=== PATIENT | male | born 1945 | race Caucasian/White ===

== ENCOUNTER 2017-07-03 09:55 | Day surgery (SDC) | payer OTHER ==
--- NOTE | 2017-06-21 14:55 | PAT Medication Instructions ---
Service Date Jun 21, 2017. Current Home Medication List Brimonidine Tartrate-Timolol M (Combigan), 1 DROP OP BD Carvedilol (Coreg), 6.25 MG PO BID Medication Instructions For Your Scheduled Surgery - Take the following medications the morning of surgery with a sip of water OTHERWISE NOTHING TO EAT OR DRINK AFTER MIDNIGHT: Carvedilol (Coreg), 6.25 MG PO BID Brimonidine Tartrate-Timolol M (Combigan), 1 DROP OP BD - Take the following medications as scheduled the night before surgery: Carvedilol (Coreg), 6.25 MG PO BID Brimonidine Tartrate-Timolol M (Combigan), 1 DROP OP BD If you have any questions please call us at [phone] or [phone] or [phone]
--- NOTE | 2017-06-21 15:29 | DIAGNOSTIC IMAGING REPORT ---
CHEST 2 VIEWS ROUTINE CLINICAL HISTORY: PAT preoperative evaluation COMPARISON STUDY: No previous studies for comparison. FINDINGS: The bones soft tissues and hemidiaphragms are normal. The cardiomediastinal silhouette is normal. The lungs are clear. The pulmonary vasculature is normal. IMPRESSION: Negative chest. The above report was generated using voice recognition software. It may contain grammatical, syntax or spelling errors. Electronically signed by: Gurpreet Rock M.D. 06/21/2017 3:28 PM Dictated Date/Time: 06/21/2017 3:28 PM
[2017-06-21 16:19] LABS: COMPLETE YES; HEMATOCRIT 38.8 % (42-52); IG% 0.4 %; LYMPH % 24.2 %; LYMPH ABS # 1.22 K/uL (1.2-3.4); MEAN CELL VOLUME 95.8 fL (80-100); MEAN CORPUSCULAR HEMOGLOBIN 31.6 pg (25-34); MEAN PLATELET VOLUME 11.8 fL (7.4-10.4); MONO % 6.3 %; NEUT % 68.1 %; PLATELET COUNT 147 K/uL (130-400); RED BLOOD COUNT 4.05 M/uL (4.7-6.1); WHITE BLOOD COUNT 5.04 K/uL (4.8-10.8)
[2017-06-21 16:20] LABS: URINE APPEARANCE CLEAR (CLEAR); URINE BILIRUBIN NEG (NEG); URINE COLOR DK YELLOW; URINE NITRITE NEG (NEG); URINE SPECIFIC GRAVITY 1.025 (1.000-1.030); UROBILINOGEN NEG (NEG)
[2017-06-21 16:26] LABS: MANUAL MICROSCOPIC REQUIRED? NO; REVIEW REQ? NO
[2017-06-21 16:27] LABS: BUN/CREATININE RATIO 15.4 (10-20); CALCIUM 8.6 mg/dl (8.5-10.1); CREATININE 1.2 mg/dl (0.60-1.40); POTASSIUM 4.6 mmol/L (3.5-5.1)
[~2017-07-03] VITALS: Ht 180.3 cm; Wt 98.6 kg
[~2017-07-03 09:55] MED LIST: ATROPINE SULFATE 0.1 MG/ML 5ML SYR IV PRN; BRIM0.2S OP; CARV6.25 PO; CEFAZOLIN 2000 MG/60 ML D5W IV SCH; EpHEDrine SULFATE INJ 50 MG/ML AMP IV PRN; FENTANYL CITRATE INJ 50 MCG/1 ML 2 ML VIAL IV PRN; HYDROmorphone INJ 1 MG/ML SYR IV PRN; LACTATED RINGER'S 1000ML 1,000 ML IV SCH; ONDANSETRON INJ 2 MG/ML 2 ML VIAL IV PRN
[2017-07-03 10:30] VITALS: BP 152/91; PULSE 78; TEMP 36.5; Ht 180.3 cm; Wt 98.6 kg
--- NOTE | 2017-07-03 11:07 | History & Physical Bridge Note ---
H&P Re-Evaluation Bridge Note: I have examined the patient, reviewed the History & Physical and in the interval since the performance of the History & Physical I have noted the following changes of clinical significance: No changes noted
[2017-07-03] MEDS ORDERED: FENTANYL CITRATE INJ 50 MCG/1 ML 2 ML VIAL ONE (11:17)
[2017-07-03] MEDS ORDERED: MIDAZOLAM HCL 1 MG/ML 2ML VIAL ONE (11:17)
[2017-07-03] MEDS ORDERED: LIDOCAINE HCL 1% 20 ML VIAL ONE (11:24)
[2017-07-03] MEDS ORDERED: CEFAZOLIN SOD 1 GM VIAL ONE (11:24)
--- NOTE | 2017-07-03 11:32 | Discharge Instructions ---
Discharge Instructions Date of Service Jul 03, 2017. Admission Reason for Admission: Prostate Cancer Discharge Discharge Diagnosis / Problem: Prostate cancer for indefinite androgen deprivation with bilateral orchiect Discharge Goals Goal(s): Improve disease control, Therapeutic intervention Activity Recommendations Activity Limitations: as noted below Lifting Limitations: no more than 25 pounds, gradually increase as tolerated ( over 5-7 days) Exercise/Sports Limitations: rest today, gradually increase as tolerated (over 5-7 days) May Resume Sexual Activity: when tolerated Shower/Bathe: tomorrow (no tub bath x 2 weeks) Driving or Machine Use: resume 1 day after discharge . Instructions / Follow-Up Instructions / Follow-Up Scrotal support and fluffs x 24 hours. Bacitracin ointment to incision x 1-2 weeks. Discharge Diet Recommended Diet: Regular Diet (good fluid intake) Procedures Procedures Performed: Bilateral simple orchiectomy Pending Studies Studies pending at discharge: yes List of pending studies: Pathology report Medical Emergencies . Who to Call and When: Medical Emergencies: If at any time you feel your situation is an emergency, please call 911 immediately. . Non-Emergent Contact Non-Emergency issues call your: Urologist Call Non-Emergent contact if: you have a fever, temperature is above 101, your pain is not controlled, your pain is worsening, your pain is unusual for you, your pain is concerning you, you have any medication questions . . "Provider Documentation" section prepared by Dangelo Pollard. . VTE Core Measure Inpt VTE Proph given/why not?: SCD's [place] Drug Monitoring Program Search Results: patient reviewed within database, no issues identified
[2017-07-03] MEDS ORDERED: CEPH500C2 PO (11:40)
[2017-07-03] MEDS ORDERED: OXYC7.5T65 PO (11:40)
[2017-07-03] MEDS ORDERED: PROPOFOL IV EMULSION 10 MG/ML 20 ML VIAL IV ONE (12:00)
[2017-07-03] MEDS ORDERED: ONDANSETRON INJ 2 MG/ML 2 ML VIAL ONE (12:00)
[2017-07-03] MEDS ORDERED: LIDOCAINE HCL 2% 2 ML VIAL (20MG/ML) ONE (12:00)
[2017-07-03] MEDS ORDERED: DEXAMETHASONE SOD INJ 4 MG/ML VIAL ONE (12:00)
[2017-07-03] MEDS ORDERED: BACITRACIN OINT 15 GM TUBE ONE (12:23)
[2017-07-03] MEDS ORDERED: BACI500O11 TOP (12:45)
--- NOTE | 2017-07-03 12:49 | [facility] Operative Report ---
Operative Report Operative Date Jul 03, 2017. Pre-Operative Diagnosis Metastatic Prostate Cancer on androgen deprivation therapy Post-Operative Diagnosis Same Procedure(s) Performed Bilateral simple orchiectomy Surgeon Dr. Keily Pollard [employer] Consultant Surgeon(s) none Estimated Blood Loss 20 ml Findings Bilateral atrophic and inflamed testes, excellent hemostasis after completion. Specimens A) Right testicle (07/03/17 @ 1202) B) Left testicle (07/03/17 @ 1212) Drains NA Anesthesia GALMA + local Complication(s) None Disposition Recovery Room / PACU Indications 72 yo male with metastatic CAP, history of rising PSA on intermittent ADT. He has chosen to have an orchiectomy due to intolerance of Lupron over time for his androgen deprivation. See H&P for further details. Description of Procedure Patient was properly identified and brought to the operative suite after identification of appropriate consent of the chart. General anesthesia with laryngeal mask was initiated and patient was prepped and draped in the standard fashion for this procedure. Full timeout procedure was followed. After instilling local anesthesia at the median raphae at the inferior most aspect of the scrotum incision was made with a 15 blade and brought down first to the right testis. Small amount of inflammatory fluid around the testis was appreciated this was delivered from the scrotum. Atrophy and inflammation consistent with long-term GnRH agonist therapy was noted. Cord was skeletonized and then clamped with a large Destinee. This was divided in testis was handed for pathologic analysis. Cord was controlled with a 0 silk stick tie 2 and 0 silk free tie 1 with flashing of the cord and excellent hemostasis. After this was complete the cord stump was returned to the right side of the scrotum. Left testis was delivered in a similar fashion, cord was divided in two, controlled with large Destinee clamps and divided. Again, 0 silk stick tie 2 and a free tie 1 was used and excellent hemostasis was appreciated. Both cords were blocked with plain Marcaine prior to clamping and incision to minimize negative stimulus. After this was complete both cord stumps return to the testis in excellent hemostasis was appreciated. Incision was closed in 2 layers with a 3-0 Vicryl running suture in the dartos fascia and 3-0 chromic at the level of the skin. Bacitracin ointment was placed followed by scrotal support with fluffs. Anesthesia was reversed and patient was transferred the recovery room in stable condition. Ice packs were provided prescriptions for Percocet and Keflex were placed within the chart. Postoperative appointments are confirmed and discharge limitations were noted. Care was discussed with patient's postoperatively. Patient was instructed to contact our service should he note any fevers, chills, nausea, vomiting or other difficulties in the postoperative period. I attest to the content of the Intraoperative Record and any orders documented therein. Any exceptions are noted below.
[2017-07-03] MEDS ORDERED: OXYCODONE/ACETAMINOPHEN 5-325 TAB PO PRN (13:00)
--- NOTE | 2017-07-03 13:15 | Anesthesiology Progress Note ---
Anesthesia Post Op Note Date & Time Jul 03, 2017 at 13:15 Vital Signs Pain Intensity: 0 Vital Signs Past 12 Hours Date Time Temp Pulse Resp B/P (MAP) Pulse Ox O2 Delivery O2 Flow Rate FiO2 07/03/17 13:05 75 17 151/64 94 Room Air 07/03/17 12:55 71 16 142/84 99 Oxymask 10 07/03/17 12:45 70 18 113/65 99 Oxymask 10 07/03/17 12:35 36.3 74 14 125/86 96 Oxymask 10 07/03/17 10:30 36.5 78 20 152/91 Notes Mental Status: alert / awake / arousable, participated in evaluation Pt Amnestic to Procedure: Yes Nausea / Vomiting: adequately controlled Pain: adequately controlled Airway Patency, RR, SpO2: stable & adequate BP & HR: stable & adequate Hydration State: stable & adequate Anesthetic Complications: no major complications apparent
[2017-07-03 13:25] VITALS: BP 167/90; PULSE 76; TEMP 36.4; O2SAT 93
[2017-07-03 14:00] VITALS: BP 154/87; PULSE 76; O2SAT 95
[2017-07-03 14:25] VITALS: BP 162/82; PULSE 76; TEMP 36.4; O2SAT 96
== END 2017-07-03 14:40 | disposition home or self-care (01) ==
LOC: C.ACU 09:55
PROVIDERS: ATTEND Urology
DX: C61 Malignant neoplasm of prostate (principal); C79.9 Secondary malignant neoplasm of unspecified site; N50.0 Atrophy of testis; N32.0 Bladder-neck obstruction; N52.9 Male erectile dysfunction, unspecified; I50.9 Heart failure, unspecified; I48.91 Unspecified atrial fibrillation; Z87.891 Personal history of nicotine dependence; Z80.0 Family history of malignant neoplasm of digestive organs